=== PATIENT | female | born 1960 | race Two or more races ===

== ENCOUNTER 2023-09-22 17:07 | Inpatient (IN) | payer MEDICAID, OTHER ==
[~2023-09-22] VITALS: Ht 162.6 cm; Wt 62.6 kg
[2023-09-22] MEDS ORDERED: SODIUM CHLORIDE 0.9% 1,000 ML IV ONE (17:30)
[2023-09-22 19:19] LABS: Basophils # (auto) 0 10 ^3/uL (0-0.2); Basophils % (auto) 0.3 % (0.0-2.0); Eosinophils # (auto) 0 10 ^3/uL (0-0.8); Eosinophils % (auto) 0.7 % (0.0-7.0); Hematocrit 39.8 % (36.0-46.0); Hemoglobin 12.9 g/dL (12.2-16.2); Lymphocytes # (auto) 1.1 10 ^3/uL (0.4-5.4); Lymphocytes % (auto) 18.6 % (10.0-50.0); Mean Corpuscular Hemoglobin 31.8 pg (28.0-32.0); Mean Corpuscular Hgb Conc. 32.3 g/dL (32.0-36.0); Mean Corpuscular Volume 98.2 fL (80.0-100.0); Monocytes # (auto) 0.4 10 ^3/uL (0-1.3); Monocytes % (auto) 7.1 % (0.0-12.0); Neutrophils # (auto) 4.3 10 ^3/uL (1.6-8.6); Neutrophils % (auto) 73.3 % (37.0-80.0); Nucleated Red Blood Cells % 0.2 %; Red Blood Cells 4.05 10^6/uL (4.0-5.20); Red Cell Distribution Width 13.6 % (11.8-14.3); White Blood Cell 5.9 10^3/uL (4.4-10.8)
[2023-09-22 19:37] LABS: Alanine Aminotransferase 13 U/L (7-40); Albumin 3.8 g/dL (3.2-4.8); Alkaline Phosphatase 93 U/L (46-116); Anion Gap 9 (5-15); Aspartate Aminotransferase 17 U/L (13-40); BUN/Creatinine Ratio 19.4 (10.0-20.0); Bilirubin, Total 0.3 mg/dL (0.2-1.0); Blood Urea Nitrogen 14 mg/dL (9-23); Calcium 8.5 mg/dL (8.7-10.4); Carbon Dioxide 23 mmol/L (20-30); Chloride 108 mmol/L (98-107); Glucose 90 mg/dL (74-106); Magnesium 1.9 mg/dL (1.6-2.6); Potassium 3.6 mmol/L (3.5-5.1); Sodium 140 mmol/L (136-145); Total Protein 6.1 g/dL (5.7-8.2)
[2023-09-22] MEDS ORDERED: ONDANSETRON HCL 4 MG/2 ML VIAL IV PRN (23:00)
[2023-09-22] MEDS ORDERED: MORPHINE SULFATE INJ 2 MG/ml SYRG IV PRN (23:00)
[2023-09-22] MEDS ORDERED: NITROGLYCERIN 0.4 MG SL TAB SL PRN (23:00)
[2023-09-22] MEDS ORDERED: ACETAMINOPHEN 325 MG TAB PO PRN (23:00)
[2023-09-23 05:00] VITALS: PULSE 55; RESP 16; O2SAT 95
[2023-09-23 06:19] LABS: Basophils # (auto) 0 10 ^3/uL (0-0.2); Basophils % (auto) 0.3 % (0.0-2.0); Eosinophils # (auto) 0 10 ^3/uL (0-0.8); Eosinophils % (auto) 0.9 % (0.0-7.0); Hematocrit 38.2 % (36.0-46.0); Hemoglobin 12.9 g/dL (12.2-16.2); Lymphocytes # (auto) 1.6 10 ^3/uL (0.4-5.4); Lymphocytes % (auto) 37.8 % (10.0-50.0); Mean Corpuscular Hemoglobin 31.6 pg (28.0-32.0); Mean Corpuscular Hgb Conc. 33.7 g/dL (32.0-36.0); Mean Corpuscular Volume 93.7 fL (80.0-100.0); Monocytes # (auto) 0.4 10 ^3/uL (0-1.3); Monocytes % (auto) 8.4 % (0.0-12.0); Neutrophils # (auto) 2.3 10 ^3/uL (1.6-8.6); Neutrophils % (auto) 52.6 % (37.0-80.0); Nucleated Red Blood Cells % 0.1 %; Red Blood Cells 4.08 10^6/uL (4.0-5.20); Red Cell Distribution Width 13.1 % (11.8-14.3); White Blood Cell 4.3 10^3/uL (4.4-10.8)
[2023-09-23 06:44] LABS: Alanine Aminotransferase 10 U/L (7-40); Albumin 4.1 g/dL (3.2-4.8); Alkaline Phosphatase 91 U/L (46-116); Anion Gap 9 (5-15); Aspartate Aminotransferase 15 U/L (13-40); BUN/Creatinine Ratio 16.2 (10.0-20.0); Bilirubin, Total 0.4 mg/dL (0.2-1.0); Blood Urea Nitrogen 12 mg/dL (9-23); Calcium 9.3 mg/dL (8.5-10.1); Carbon Dioxide 25 mmol/L (20-30); Chloride 108 mmol/L (98-107); Glucose 87 mg/dL (74-106); Potassium 3.7 mmol/L (3.5-5.1); Sodium 142 mmol/L (136-145); Total Protein 6.6 g/dL (5.7-8.2)
[2023-09-23 08:15] VITALS: BP 125/77; PULSE 60; RESP 17; TEMP 97.9; O2SAT 96
[2023-09-23] MEDS: ENOXAPARIN SOD 40 MG/0.4 ML SYRINGE SC SCH (10:55)
[2023-09-23 12:30] VITALS: BP 137/71; PULSE 50; RESP 18; TEMP 98; O2SAT 100
[2023-09-23 12:43] LABS: Folate (Folic Acid) 15.17 ng/mL (>5.38)
[2023-09-23 17:00] VITALS: BP 105/61; PULSE 68; RESP 17; TEMP 98.3; O2SAT 98
[2023-09-23 20:00] VITALS: BP 136/72; PULSE 51; PULSE 60; RESP 18; TEMP 97.6; O2SAT 96
[2023-09-23] MEDS ORDERED: ATORVASTATIN 20 MG TAB PO SCH (22:00)
[2023-09-24 04:50] VITALS: BP 123/61; PULSE 54; RESP 19; TEMP 97.9; O2SAT 100
[2023-09-24 06:49] LABS: Chloride 109 mmol/L (98-107); Potassium 4.2 mmol/L (3.5-5.1); Sodium 142 mmol/L (136-145)
[2023-09-24 06:50] LABS: Anion Gap 8 (5-15); Calcium 9.2 mg/dL (8.5-10.1); Carbon Dioxide 25 mmol/L (20-30)
[2023-09-24 06:55] LABS: BUN/Creatinine Ratio 21.1 (10.0-20.0); Blood Urea Nitrogen 15 mg/dL (9-23); Glucose 92 mg/dL (74-106)
[2023-09-24 06:56] LABS: Basophils # (auto) 0 10 ^3/uL (0-0.2); Basophils % (auto) 0.4 % (0.0-2.0); Eosinophils # (auto) 0.1 10 ^3/uL (0-0.8); Eosinophils % (auto) 1.9 % (0.0-7.0); Hematocrit 37.7 % (36.0-46.0); Hemoglobin 12.8 g/dL (12.2-16.2); Lymphocytes % (auto) 40.9 % (10.0-50.0); Mean Corpuscular Hemoglobin 31.5 pg (28.0-32.0); Mean Corpuscular Hgb Conc. 33.8 g/dL (32.0-36.0); Monocytes # (auto) 0.3 10 ^3/uL (0-1.3); Monocytes % (auto) 6.3 % (0.0-12.0); Neutrophils # (auto) 2.5 10 ^3/uL (1.6-8.6); Neutrophils % (auto) 50.5 % (37.0-80.0); Nucleated Red Blood Cells % 0.1 %; Red Blood Cells 4.05 10^6/uL (4.0-5.20); Red Cell Distribution Width 13.1 % (11.8-14.3); White Blood Cell 4.9 10^3/uL (4.4-10.8)
[2023-09-24 07:28] LABS: Urine Bacteria FEW /hpf (None Seen); Urine Blood 1+ /uL (Negative); Urine Clarity HAZY (Clear); Urine Color Yellow (Yellow); Urine Mucus FEW (None Seen); Urine Protein, UAD TRACE (Negative); Urine Urobilinogen Normal (Negative); Urine WBC 147 /hpf (0 - 5); Urine pH 6.5 (5.0-8.0)
[2023-09-24 07:41] LABS: Amphetamine Screen, Urine Neg (NEGATIVE); Benzodiazephine Screen, Urine Neg (NEGATIVE)
[2023-09-24 07:42] LABS: Barbiturate Scree,Urine Neg (NEGATIVE); Cannabinoid Screen, Urine Neg (NEGATIVE); Cocaine Screen, Urine Neg (NEGATIVE); Opiate Scree,Urine Neg (NEGATIVE); Phencyclidine Screen, Urine Neg (NEGATIVE)
[2023-09-24 08:00] VITALS: PULSE 51
[2023-09-24 08:25] VITALS: BP 130/70; PULSE 55; RESP 18; TEMP 98.5; O2SAT 99
[2023-09-24] MEDS ORDERED: cefTRIAXone 1GM/50ML D5W 50 ML IV ONE (09:30)
[2023-09-24 09:37] LABS: Hepatitis B Surface Antigen Negative (Negative)
[2023-09-24 10:15] LABS: Hepatitis C Antibody Negative (Negative)
[2023-09-24] MEDS: ENOXAPARIN SOD 40 MG/0.4 ML SYRINGE SC SCH (11:21)
[2023-09-24 11:23] LABS: Magnesium 1.9 mg/dL (1.6-2.6)
[2023-09-24 11:30] VITALS: BP_SYST 115; BP_SYST 118; BP_SYST 137; BP_DIAS 68; BP_DIAS 74; BP_DIAS 75
[2023-09-24 12:30] VITALS: BP 137/68; PULSE 53; RESP 18; TEMP 98; O2SAT 98
[2023-09-24 12:50] LABS: Free T3 3.15 pg/mL (2.3-4.2); Free T4 (Free Thyroxine) 1.01 ng/dL (0.89-1.76)
[2023-09-24 14:36] VITALS: TEMP 36.7
[2023-09-24] MEDS ORDERED: ATORVASTATIN 20 MG TAB PO SCH (22:00)
[2023-09-25] MEDS ORDERED: cefTRIAXone 1GM/50ML D5W 50 ML IV SCH (09:00)
== END 2023-09-24 17:52 | disposition home or self-care (01) | DRG 201 ==
LOC: ER 17:07 → EDBD 17:07 → TELE 23:18 → EDBD 23:18 → TELE-WESTW 09-23 08:16
PROVIDERS: ADMIT Internal Medicine Pulmonary Disease; ATTEND Internal Medicine Pulmonary Disease
DX: R00.1 Bradycardia, unspecified (principal); E03.9 Hypothyroidism, unspecified; E86.0 Dehydration; F17.200 Nicotine dependence, unspecified, uncomplicated; Z82.49 Family history of ischemic heart disease and other diseases of the circulatory system; Z83.3 Family history of diabetes mellitus; Z90.711 Acquired absence of uterus with remaining cervical stump; Z71.6 Tobacco abuse counseling
CPT/HCPCS: 36415; 70450; 70551; 71045; 80048; 80053; 80061; 80307; 81001; 82533; 82607; 82746; 83605; 83735; 83880; 84439; 84443; 84481; 84484; 85025; 86803; 87086; 87340; 93005; 93306; 93886; G0378